=== PATIENT | female | born 1965 | race Caucasian/White ===

== ENCOUNTER 2016-03-15 14:41 | Emergency (ER) | payer MEDICARE, OTHER ==
[~2016-03-15] VITALS: Ht 152.4 cm; Wt 57.0 kg
[~2016-03-15 14:41] MED LIST: BUTA1CAP PO; OXYC1CAP PO; PRIL40CA PO; SERO300T PO; XANA1TAB2 PO
[2016-03-15 14:44] VITALS: BP 143/79; PULSE 100; RESP 20; TEMP 97.9; O2SAT 93
[2016-03-15 20:58] VITALS: BP 151/87; PULSE 79; RESP 19; O2SAT 97
[2016-03-15] MEDS ORDERED: SODIUM CHLOR 0.9% 1000 ML INJ 1,000 ML IV SCH (21:03)
[2016-03-15] MEDS ORDERED: HYDROmorphone HCL PF 1 MG/ML VIAL IVS ONE (21:15)
[2016-03-15] MEDS ORDERED: ONDANSETRON HCL 4 MG/2 ML VIAL IVP ONE (21:15)
[2016-03-15] MEDS ORDERED: HYDROmorphone HCL PF 1 MG/ML VIAL IV PUSH ONE ×2 (22:15→23:00)
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
[2016-03-15] MEDS ORDERED: SODIUM CHLORIDE 0.9% FLUSH 5 ML FLUSH IVF PRN (23:15)
[2016-03-15] MEDS ORDERED: diphenhydrAMINE HCL 50 MG/ML VIAL IVP ONE (23:15)
[2016-03-15] MEDS ORDERED: ACETAMINOPHEN 325 MG TAB PO ONE (23:15)
[2016-03-15] MEDS ORDERED: PROCHLORPERAZINE INJ 10 MG/2 ML VIAL IVP ONE (23:15)
[2016-03-15 23:33] LABS: BASOPHIL # 0.1 TH/MM3 (0-0.2); BASOPHIL % 0.6 % (0.0-2.0); EOSINOPHIL # 0.3 TH/MM3 (0-0.4); EOSINOPHIL % 2.3 % (0.0-4.0); HEMATOCRIT 45.2 % (35.0-46.0); LYMPH % 25.4 % (9.0-44.0); LYMPHOCYTE # 2.8 TH/MM3 (1.0-4.8); MEAN CORPUSCULAR HEMOGLOBIN 33.3 PG (27.0-34.0); MEAN CORPUSCULAR HGB CONC 34.7 % (32.0-36.0); MONO % 8.4 % (0.0-8.0); NEUT % 63.3 % (16.0-70.0); PLATELET COUNT 413 TH/MM3 (150-450); RED BLOOD COUNT 4.71 MIL/MM3 (4.00-5.30); RED CELL DISTRIBUTION WIDTH 14.3 % (11.6-17.2); WHITE BLOOD COUNT 11.1 TH/MM3 (4.0-11.0)
[2016-03-15 23:36] LABS: HEMO FLAGS AUTO DIFF
[2016-03-15 23:45] LABS: BICARBONATE 27.4 MEQ/L (21.0-32.0)
--- NOTE | 2016-03-15 23:55 | RADRPT ---
EXAM DATE/TIME: 03/15/2016 23:34 [facility] COMPARISON: CT BRAIN W/O CONTRAST, February 21, 2013, 10:25. INDICATIONS : Headache for 10 days with nausea and vomiting. RADIATION DOSE: 32.14 CTDIvol (mGy) MEDICAL HISTORY : Seizures. MRSA, Sporothrix, rhabdomylosis, ros gardners disease SURGICAL HISTORY : None. ENCOUNTER: Initial ACUITY: 1 week PAIN SCALE: 10/10 LOCATION: cranial TECHNIQUE: Multiple contiguous axial images were obtained of the head. Using automated exposure control and adj ustment of the mA and/or kV according to patient size, radiation dose was kept as low as reasonably a chievable to obtain optimal diagnostic quality images. FINDINGS: CEREBRUM: The ventricles are normal for age. No evidence of midline shift, mass lesion, hemorrhage or acute in farction. No extra-axial fluid collections are seen. POSTERIOR FOSSA: The cerebellum and brainstem are intact. The 4th ventricle is midline. The cerebellopontine angle i s unremarkable. EXTRACRANIAL: The visualized portion of the orbits is intact. Mucosal thickening is seen involving the visualized p ortions of the left maxillary sinus. SKULL: The calvaria is intact. No evidence of skull fracture. CONCLUSION: 1. No acute intracranial abnormality. 2. Left maxillary sinus disease. Keshav Crain Jr., MD on March 15, 2016 at 23:52 Board Certified Radiologist. This report was verified electronically.
[2016-03-16] MEDS ORDERED: OCEA0.653 EACH NARE (00:02)
[2016-03-16 00:05] LABS: PLATELET ESTIMATE SMEAR NORMAL (NORMAL); PLATELET MORPHOLOGY NORMAL (NORMAL); SCAN/DIFF AUTO DIFF CONFIRMED
== END 2016-03-16 00:32 | disposition home or self-care (01) ==
LOC: NEPC 14:41
DX: R51 Headache (principal); J32.0 Chronic maxillary sinusitis; G89.29 Other chronic pain; M19.90 Unspecified osteoarthritis, unspecified site; F17.210 Nicotine dependence, cigarettes, uncomplicated
CPT/HCPCS: 70450; 80048; 85025; 96374; 96375; 96376; 99284; J0780; J1170; J1200; J2405; J7030

== ENCOUNTER 2016-09-12 06:54 | Emergency (ER) | payer MEDICARE, OTHER ==
[~2016-09-12] VITALS: Ht 152.4 cm; Wt 65.0 kg
[~2016-09-12 06:54] MED LIST changes: +OCEA0.653 EACH NARE
[2016-09-12 06:58] VITALS: BP 128/78; PULSE 99; RESP 16; TEMP 98.4; O2SAT 97
[2016-09-12] MEDS ORDERED: SODIUM CHLOR 0.9% 1000 ML INJ 1,000 ML IV SCH (07:11)
[2016-09-12] MEDS ORDERED: MORPHINE SULFATE 4 MG/ML INJ IV PUSH ONE (07:15)
[2016-09-12] MEDS ORDERED: SODIUM CHLORIDE 0.9% FLUSH 10 ML FLUSH IV FLUSH PRN (07:15)
[2016-09-12] MEDS ORDERED: SERO300T PO (07:18)
[2016-09-12] MEDS ORDERED: OMEP40CA2 PO (07:18)
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
[2016-09-12] MEDS ORDERED: MORPHINE SULFATE 8 MG/ML INJ IV PUSH ONE ×2 (07:45→08:45)
[2016-09-12 07:54] VITALS: O2SAT 97
[2016-09-12 07:56] LABS: AUTOMATED NEUTROPHIL # 7.6 TH/MM3 (1.8-7.7); BASOPHIL # 0.2 TH/MM3 (0-0.2); BASOPHIL % 1.9 % (0.0-2.0); EOSINOPHIL # 0.5 TH/MM3 (0-0.4); EOSINOPHIL % 4.8 % (0.0-4.0); HEMATOCRIT 39.9 % (35.0-46.0); HEMO FLAGS DIFF FINAL; LYMPH % 16.5 % (9.0-44.0); LYMPHOCYTE # 1.8 TH/MM3 (1.0-4.8); MEAN CELL VOLUME 94.1 FL (80.0-100.0); MEAN CORPUSCULAR HEMOGLOBIN 32.7 PG (27.0-34.0); MEAN CORPUSCULAR HGB CONC 34.7 % (32.0-36.0); MONO % 9.3 % (0.0-8.0); NEUT % 67.5 % (16.0-70.0); PLATELET COUNT 349 TH/MM3 (150-450); RED BLOOD COUNT 4.24 MIL/MM3 (4.00-5.30); RED CELL DISTRIBUTION WIDTH 14.2 % (11.6-17.2); WHITE BLOOD COUNT 11.1 TH/MM3 (4.0-11.0)
[2016-09-12 08:01] VITALS: BP 147/78; PULSE 90; RESP 18; O2SAT 97
[2016-09-12 08:08] LABS: APTT (PATIENT) 23.1 SEC (24.3-30.1); PROTHROMBIN TIME - PATIENT 10.7 SEC (9.8-11.6)
[2016-09-12 08:17] LABS: BLOOD, URINE NEG (NEG); GLUCOSE,URINE NEG (NEG); KETONE, URINE NEG (NEG); NITRITE,URINE NEG (NEG)
[2016-09-12 08:22] LABS: METHOD OF COLLECTION CLEAN CATCH; URINE COLOR YELLOW (YELLW/STRAW)
[2016-09-12 08:24] LABS: BACTERIA, URINE MOD /hpf; COMMENT (UR) CULTURE INDICATED; CULTURE IF INDICATED CULTURE INDICATED; RBC, URINE 0-3 /hpf (0-3); SQUAMOUS EPITHELIAL CELL URINE > 8 /hpf (0-5)
[2016-09-12 08:41] LABS: CHLORIDE 104 MEQ/L (98-107); POTASSIUM 3.7 MEQ/L (3.5-5.1); SODIUM (NA) 141 MEQ/L (136-145)
[2016-09-12 08:45] LABS: ANION GAP 10 MEQ/L (5-15); BICARBONATE 26.6 MEQ/L (21.0-32.0); BLOOD UREA NITROGEN 17 MG/DL (7-18)
[2016-09-12] MEDS ORDERED: LEVOFLOXACIN 500 MG PREMIX INJ 100 ML IV ONE (08:45)
[2016-09-12] MEDS ORDERED: KETOROLAC TROMETHAMINE 30 MG/ML (IVP) VIAL IV PUSH ONE (08:45)
[2016-09-12 08:48] LABS: ALT (GPT) 29 U/L (10-53); AST (GOT) 27 U/L (15-37); GLOMERULAR FILTRATION RATE 114 ML/MIN (>89)
[2016-09-12 08:49] LABS: TOTAL BILIRUBIN ADULT 0.4 MG/DL (0.2-1.0)
[2016-09-12 08:51] LABS: ALKALINE PHOSPHATASE 128 U/L (45-117)
[2016-09-12 08:58] VITALS: BP 113/59; PULSE 94; RESP 16; O2SAT 96
--- NOTE | 2016-09-12 10:12 | RADRPT ---
EXAM DATE/TIME: 09/12/2016 09:37 [place] COMPARISON: CT ABDOMEN & PELVIS W CONTRAST, October 28, 2012, 22:20. INDICATIONS : Diffuse abdomen pain, back pain after having a seizure. IV CONTRAST: 71 cc Omnipaque 350 (iohexol) IV ORAL CONTRAST: No oral contrast ingested. RADIATION DOSE: 10.33 CTDIvol (mGy) MEDICAL HISTORY : Arthritis. Cardiovascular disease Renal calculi.Ulcer,siezure SURGICAL HISTORY : Cholecystectomy. Neck surgury,hernia ENCOUNTER: Initial ACUITY: 1 day PAIN SCALE: 9/10 LOCATION: Abdomen TECHNIQUE: Volumetric scanning of the abdomen and pelvis was performed. Using automated exposure control and ad justment of the mA and/or kV according to patient size, radiation dose was kept as low as reasonably achievable to obtain optimal diagnostic quality images. DICOM format image data is available electro nically for review and comparison. FINDINGS: The patient is status post cholecystectomy. Liver, spleen, pancreas, adrenal glands, bilateral kidney s, urinary bladder, uterus and adnexa are unremarkable. There is no evidence of bowel obstruction, fr ee fluid or free air. Appendix is normal. There is no aneurysm or adenopathy. There are compression f ractures involving the T12 and T11 superior endplates. These are acute in appearance with mild loss o f vertebral body height. CONCLUSION: 1. Mild wedge compression fractures of T11 and T12. Moris Canchola MD on September 12, 2016 at 10:07 Board Certified Radiologist. This report was verified electronically.
[2016-09-12] MEDS ORDERED: LEVA500T20 PO (10:33)
[2016-09-12] MEDS ORDERED: OXYC1CAP PO (10:33)
[2016-09-12 10:39] VITALS: BP 149/74; PULSE 86; RESP 16; O2SAT 96
[2016-09-12] MEDS ORDERED: oxyCODONE/ACETAMINOPHEN 5 MG/325 MG TAB PO ONE (10:45)
[2016-09-12] MEDS ORDERED: DEXAMETHASONE SOD PHOS 20 MG/5 ML VIAL IV PUSH ONE (10:45)
[2016-09-12] MEDS ORDERED: IOHEXOL 350 MG/ML 10 ML VIAL (for RAD DIAG) IV ONE (10:46)
== END 2016-09-12 11:06 | disposition home or self-care (01) ==
LOC: PHED 06:54
DX: R10.30 Lower abdominal pain, unspecified (principal); N39.0 Urinary tract infection, site not specified; S22.000A Wedge compression fracture of unspecified thoracic vertebra, initial encounter for closed fracture; R56.9 Unspecified convulsions; B96.89 Other specified bacterial agents as the cause of diseases classified elsewhere; F17.210 Nicotine dependence, cigarettes, uncomplicated; F41.8 Other specified anxiety disorders; F31.9 Bipolar disorder, unspecified; V49.9XXA Car occupant (driver) (passenger) injured in unspecified traffic accident, initial encounter; Y99.9 Unspecified external cause status; Y93.9 Activity, unspecified; Y92.9 Unspecified place or not applicable; F43.10 Post-traumatic stress disorder, unspecified
CPT/HCPCS: 74177; 80053; 81001; 83690; 85025; 85610; 85730; 87086; 96361; 96365; 96375; 96376; 99285; J1100; J1956; J2270; J7030; Q9967